=== PATIENT | female | born 1945 | race Two or more races ===

== ENCOUNTER 2020-01-01 11:51 | Emergency (ER) | payer OTHER ==
[~2020-01-01] VITALS: Ht 160 cm; Wt 81.6 kg
[~2020-01-01 11:51] MED LIST: LISINOPRIL10 MG; TOPROL XL25 M1
[2020-01-01] MEDS ORDERED: ASPIR 8181 MG PO (12:15)
== END 2020-01-01 15:36 | disposition home or self-care (01) ==
LOC: ER 11:51
DX: B34.9 Viral infection, unspecified (principal)

== ENCOUNTER 2022-01-21 10:06 | Emergency (ER) | payer OTHER ==
[~2022-01-21] VITALS: Ht 160 cm; Wt 83.9 kg
[~2022-01-21 10:06] MED LIST changes: +ASPIR 8181 MG PO
[2022-01-21] MEDS ORDERED: MEDROLPACK PO (13:35)
== END 2022-01-21 14:32 | disposition home or self-care (01) ==
LOC: ER 10:06
DX: R30.0 Dysuria (principal); M54.9 Dorsalgia, unspecified

== ENCOUNTER 2022-07-30 09:44 | Emergency (ER) | payer OTHER ==
[~2022-07-30] VITALS: Ht 160 cm; Wt 81.2 kg
[~2022-07-30 09:44] MED LIST changes: +MEDROLPACK PO
[2022-07-30] MEDS ORDERED: CIPRO500 MG PO (09:57)
== END 2022-07-30 14:39 | disposition home or self-care (01) ==
LOC: ER 09:44
DX: R10.9 Unspecified abdominal pain (principal); R30.0 Dysuria; N20.0 Calculus of kidney

== ENCOUNTER → 2022-09-09 | Emergency (ER) | payer OTHER ==
[~2022-09-09] VITALS: Ht 160 cm; Wt 81.6 kg
[~2022-09-09] MED LIST changes: +CIPRO500 MG PO; +PEPCID AC20 MG PO; +ZOFRAN8 MG PO
== END | disposition home or self-care (01) ==
LOC: ER 14:18
DX: R11.10 Vomiting, unspecified (principal); I10 Essential (primary) hypertension; Z20.822 Contact with and (suspected) exposure to COVID-19

== ENCOUNTER 2025-09-05 14:04 | Inpatient (IN) | payer OTHER ==
[~2025-09-05] VITALS: Ht 157.5 cm; Wt 65.3 kg
[2025-09-05] MEDS ORDERED: METFORMIN HCL500 M3 PO (14:39)
[2025-09-05] MEDS ORDERED: ZESTRIL20 MG PO (14:39)
[2025-09-05] MEDS ORDERED: TOPROL XL100 M1 PO (14:39)
[2025-09-05] MEDS ORDERED: INTEGRA PLUS C1 EACH PO (14:39)
--- NOTE | 2025-09-05 14:40 | NUR ---
PTE LLEGA POR REFERIDO DE ADRIANNE RODRIGUEZ . SE LE VANI S/V Y SE ACOMODA EN NATALIYA.
[2025-09-05] MEDS ORDERED: 0.9 % SODIUM CHLORIDE 1,000 ML IV ONE (14:45)
[2025-09-05] MEDS ORDERED: ONDANSETRON HCL 2 MG/ML VIAL IV PRN (15:15)
[2025-09-05] MEDS ORDERED: RINGERS SOLUTION,LACTATED 1,000 ML IV SCH (15:15)
[2025-09-05] MEDS ORDERED: OxyCODONE HCL 5 MG TABLET (ROXICODONE) PO PRN (15:15)
--- NOTE | 2025-09-05 15:47 | NUR ---
PACIENTE EVALUADA POR QUIEN ORDENA TRATAMIENTO MEDICO, SE LE ORIENTA A PACIENTE SOBRE EL MISMO Y REFIERE ENTENDER, SE LE COLECTAN MUESTRAS DE LABORTORIO Y SE CANALIZA BAJO MEDIDAS ASETPICAS. SE LE COLOCAN IV FLUIDS OSEAS ORDEN Y SE LE HACE ENTREGA A PACIENTE ENVASE PARA COLECTA DE U/A.
[2025-09-05 15:50] LABS: BASO % 1.0 % (0.1-1.2); EOS # 0.25 (0.04-0.54); EOS % 2.7 % (0.7-7.0); LYMPH # 1.73 (1.18-3.74); LYMPH % 18.6 % (19.3-53.1); MEAN PLATELET VOLUME 8.40 fl (9.4-12.4); MONO # 0.81 (0.24-0.82); MONO % 8.7 % (4.7-12.5); NEUT # 6.41 (1.56-6.13); NEUT % 68.7 % (34.0-71.1); RED CELL DISTRIBUTION WIDTH 17.0 % (11.6-14.4)
[2025-09-05] MEDS ORDERED: HYOSCYAMINE SULFATE 0.125 MG TAB.SUBL ONE (15:58)
[2025-09-05] MEDS ORDERED: DIATRIZOATE MEGLUMINE, SODIUM 30 ML BOTTLE ONE (16:15)
[2025-09-05 16:18] LABS: INR 1.01
[2025-09-05 16:20] LABS: ALT/SGPT 19 U/L (12-78); AST/SGOT 30 U/L (15-37); BILIRUBIN TOTAL 0.30 mg/dL (0.3-1.2); BILIRUBIN,CONJUGATED < 0.10 mg/dL (0.0-0.2); BUN CREA RATIO 23 (7.0-25.0); CREATININE SERUM 0.82 mg/dL (0.55-1.02); GFR 67.07; GLOBULINA 5.4 G/DL (2.4-3.5); GLUCOSE FASTING 123 mg/dL (65-100); OSMOLALITY SERUM 274 MOSM/KG (275-295)
[2025-09-05 16:28] VITALS: BP 145/74; O2SAT 100
[2025-09-05] MEDS ORDERED: HYOSCYAMINE SULFATE 0.125 MG TAB.SUBL SL SCH (17:00)
[2025-09-05 18:33] LABS: URINE APPEARANCE Clear; URINE BILIRRUBIN Negative (NEGATIVE); URINE BLOOD Small; URINE COLOR Yellow; URINE GLUCOSE Negative (NEGATIVE); URINE KETONE Negative (NEGATIVE); URINE LEUKOCYTE Trace; URINE NITRATE Positive; URINE UROBILINOGEN 0.2 E.U./dl
[2025-09-05 18:36] LABS: URINE CAST 1.61 uL (0.0-1.40); URINE EPITHELIAL CELLS 9.0 uL (0.0-38.8); URINE RBC 17.3 uL (0.0-20.8); URINE WBC 123.3 uL (0.0-23.2)
[2025-09-05 18:42] VITALS: BP 157/76; O2SAT 99
[2025-09-05 18:43] LABS: URINE BACTERIA > 9821.5 uL (0.0-1933); URINE PROTEIN 100 (NEGATIVE)
[2025-09-05] MEDS ORDERED: CEFTRIAXONE SODIUM 1,000 MG VIAL IV STA (19:30)
[2025-09-05] MEDS ORDERED: INSULIN LISPRO 1,000 UNIT/10 ML UNITS SUBCUTANEO PRN (19:30)
[2025-09-05] MEDS ORDERED: ENALAPRILAT DIHYDRATE 1.25 MG/ML VIAL IV PRN (19:30)
[2025-09-05] MEDS ORDERED: DEXTROSE 50 % IN WATER 0.5 G/ML DISP.SYRIN IV PRN (19:30)
[2025-09-05] MEDS ORDERED: AMINO ACIDS/PROTEIN HYDROLYS 30 ML BLIST.PACK PO NR (19:40)
[2025-09-05] MEDS ORDERED: FAMOTIDINE/PF 20 MG/2 ML VIAL IV SCH (21:00)
[2025-09-06 00:52] VITALS: BP 125/73; O2SAT 99
[2025-09-06 01:13] LABS: CREATININE URINE RANDOM 32.6 MG/DL (30-125)
[2025-09-06 07:11] LABS: BASO % 0.9 % (0.1-1.2); EOS # 0.34 (0.04-0.54); EOS % 3.8 % (0.7-7.0); LYMPH # 1.56 (1.18-3.74); LYMPH % 17.4 % (19.3-53.1); MEAN PLATELET VOLUME 9.10 fl (9.4-12.4); MONO # 0.76 (0.24-0.82); MONO % 8.5 % (4.7-12.5); NEUT # 6.20 (1.56-6.13); NEUT % 69.1 % (34.0-71.1); RED CELL DISTRIBUTION WIDTH 17.1 % (11.6-14.4)
[2025-09-06 07:50] LABS: COL EPI 79 SECONDS (82-175)
[2025-09-06 08:00] VITALS: BP 136/73; O2SAT 96
[2025-09-06 08:05] LABS: BUN CREA RATIO 38.0 (7.0-25.0); CREATININE SERUM 0.37 mg/dL (0.55-1.02); GFR 168.04; GLUCOSE FASTING 98.0 mg/dL (65-100); OSMOLALITY SERUM 276.0 MOSM/KG (275-295); TSH 0.784 uIU/mL (0.358-3.74)
[2025-09-06] MEDS ORDERED: Cyanocobalamin/Mecobalamin 1 TAB.SL SL SCH (09:00)
[2025-09-06] MEDS ORDERED: LACTOBACILLUS ACIDOPHILUS 1 CAP CAP PO SCH (09:00)
[2025-09-06] MEDS ORDERED: SOD FERRIC GLUC COMPLX/SUCROSE 62.5 MG in 0.9 % SODIUM CHLORIDE 50 ML IV SCH (09:00)
[2025-09-06] MEDS ORDERED: LISINOPRIL 20 MG TABLET PO SCH (09:00)
[2025-09-06] MEDS ORDERED: AMINO ACIDS/PROTEIN HYDROLYS 30 ML BLIST.PACK PO SCH (09:00)
[2025-09-06 16:32] VITALS: BP 153/68
[2025-09-06] MEDS ORDERED: CEFTRIAXONE SODIUM 1,000 MG VIAL IV SCH (17:00)
[2025-09-06] MEDS ORDERED: ENOXAPARIN SODIUM 40 MG/0.4 ML SYRINGE SUBCUTANEO SCH (17:00)
[2025-09-07 01:13] VITALS: BP 120/54; O2SAT 95
[2025-09-07] MEDS ORDERED: POLYETHYLENE GLYCOL 3350 17 GM BLIST.PACK PO SCH (09:00)
[2025-09-07 13:13] LABS: FE 22.0 ug/dl (50-170)
[2025-09-07 13:32] LABS: FOLIC ACID > 20.00 ng/ml (4.78-20)
[2025-09-07] MEDS ORDERED: CEFTRIAXONE SODIUM 1,000 MG VIAL IV SCH (17:00)
[2025-09-07 17:19] VITALS: BP 182/73; O2SAT 98
[2025-09-07] MEDS ORDERED: AMLODIPINE BESYLATE 2.5 MG TABLET PO STA (19:04)
[2025-09-07 21:12] VITALS: BP 142/59; BP 162/73
[2025-09-08 00:30] VITALS: BP 134/77; O2SAT 98
[2025-09-08 08:28] VITALS: BP 147/69; O2SAT 96
[2025-09-08 16:50] VITALS: BP 180/67; O2SAT 98
[2025-09-08 18:45] VITALS: BP 166/73; O2SAT 96
[2025-09-08 19:48] VITALS: BP 176/80; O2SAT 97
[2025-09-08] MEDS ORDERED: AMLODIPINE BESYLATE 2.5 MG TABLET PO STA (19:56)
[2025-09-08 22:00] VITALS: BP 156/80; O2SAT 98
[2025-09-09 01:22] VITALS: BP 152/70; O2SAT 97
[2025-09-09 07:52] LABS: BASO % 1.0 % (0.1-1.2); EOS # 0.37 (0.04-0.54); EOS % 4.8 % (0.7-7.0); LYMPH # 1.50 (1.18-3.74); LYMPH % 19.3 % (19.3-53.1); MEAN PLATELET VOLUME 9.30 fl (9.4-12.4); MONO # 0.81 (0.24-0.82); MONO % 10.4 % (4.7-12.5); NEUT # 4.98 (1.56-6.13); NEUT % 64.1 % (34.0-71.1); RED CELL DISTRIBUTION WIDTH 16.7 % (11.6-14.4)
[2025-09-09 07:59] LABS: BUN CREA RATIO 23.0 (7.0-25.0); CREATININE SERUM 0.48 mg/dL (0.55-1.02); GFR 124.44; GLUCOSE FASTING 116.0 mg/dL (65-100); OSMOLALITY SERUM 280.0 MOSM/KG (275-295)
[2025-09-09 08:00] VITALS: BP 156/85; O2SAT 97
[2025-09-09] MEDS ORDERED: POLYETHYLENE GLYCOL 3350 17 GM BLIST.PACK PO SCH (09:00)
[2025-09-09] MEDS ORDERED: MAGNESIUM CITRATE 296 ML BOTTLE PO SCH (15:00)
[2025-09-09 16:00] VITALS: BP 135/72; O2SAT 98
[2025-09-10 01:35] VITALS: BP 173/91; O2SAT 98
[2025-09-10 09:30] VITALS: BP 145/77; O2SAT 98
[2025-09-10] MEDS ORDERED: MEROPENEM 500 MG/VIAL VIAL IV SCH (12:00)
[2025-09-10] MEDS ORDERED: CEFTRIAXONE SODIUM 2,000 MG in 0.9 % SODIUM CHLORIDE 50 ML IV ONE (13:00)
[2025-09-10] MEDS ORDERED: HEPARIN SODIUM,PORCINE/PF 100 UNIT/ML SYRINGE IV ONE (13:33)
[2025-09-10] MEDS ORDERED: SUGAMMADEX SODIUM 200 MG/2 ML VIAL IV ONE (15:16)
[2025-09-10] MEDS ORDERED: OxyCODONE HCL 5 MG TABLET (ROXICODONE) PO PRN (16:00)
[2025-09-10] MEDS ORDERED: MORPHINE SULFATE 4 MG/ML CARTRIDGE IV PRN (16:00)
[2025-09-10] MEDS ORDERED: ONDANSETRON HCL 2 MG/ML VIAL IV PRN (16:00)
[2025-09-10] MEDS ORDERED: GABAPENTIN 300 MG CAPSULE PO SCH (17:00)
[2025-09-10] MEDS ORDERED: HYOSCYAMINE SULFATE 0.125 MG TAB.SUBL SL SCH (17:00)
[2025-09-10] MEDS ORDERED: CEFTRIAXONE SODIUM 2,000 MG VIAL IV SCH (17:00)
[2025-09-10 17:21] LABS: BASO % 1.0 % (0.1-1.2); EOS # 0.22 (0.04-0.54); EOS % 2.7 % (0.7-7.0); LYMPH # 1.53 (1.18-3.74); LYMPH % 19.0 % (19.3-53.1); MEAN PLATELET VOLUME 8.40 fl (9.4-12.4); MONO # 0.90 (0.24-0.82); MONO % 11.2 % (4.7-12.5); NEUT # 5.30 (1.56-6.13); NEUT % 65.7 % (34.0-71.1); RED CELL DISTRIBUTION WIDTH 17.3 % (11.6-14.4)
[2025-09-10] MEDS ORDERED: ACETAMINOPHEN 500 MG GEL..CAP PO SCH (20:00)
[2025-09-10 21:26] VITALS: BP 150/66; O2SAT 93
[2025-09-11 00:10] VITALS: BP 138/72; O2SAT 95
[2025-09-11 06:43] LABS: BASO % 0.8 % (0.1-1.2); EOS # 0.15 (0.04-0.54); EOS % 1.9 % (0.7-7.0); LYMPH # 1.02 (1.18-3.74); LYMPH % 12.8 % (19.3-53.1); MEAN PLATELET VOLUME 8.80 fl (9.4-12.4); MONO # 0.66 (0.24-0.82); MONO % 8.3 % (4.7-12.5); NEUT # 6.04 (1.56-6.13); NEUT % 75.8 % (34.0-71.1); RED CELL DISTRIBUTION WIDTH 17.6 % (11.6-14.4)
[2025-09-11 07:02] LABS: BUN CREA RATIO 23.0 (7.0-25.0); CREATININE SERUM 0.48 mg/dL (0.55-1.02); GFR 124.44; GLUCOSE FASTING 116.0 mg/dL (65-100); OSMOLALITY SERUM 283.0 MOSM/KG (275-295)
[2025-09-11 08:00] VITALS: BP 134/62; O2SAT 95
[2025-09-11] MEDS ORDERED: LACTOBACILLUS ACIDOPHILUS 1 CAP CAP PO SCH (09:00)
[2025-09-11] MEDS ORDERED: TAMSULOSIN HCL 0.4 MG CAP PO STA (14:37)
[2025-09-11 15:45] VITALS: BP 121/70
[2025-09-11] MEDS ORDERED: ENOXAPARIN SODIUM 40 MG/0.4 ML SYRINGE SUBCUTANEO SCH (17:00)
[2025-09-12 01:49] VITALS: BP 137/84; O2SAT 99
[2025-09-12 06:57] LABS: BASO % 0.6 % (0.1-1.2); EOS # 0.30 (0.04-0.54); EOS % 3.7 % (0.7-7.0); LYMPH # 1.38 (1.18-3.74); LYMPH % 17.1 % (19.3-53.1); MEAN PLATELET VOLUME 8.60 fl (9.4-12.4); MONO # 0.61 (0.24-0.82); MONO % 7.6 % (4.7-12.5); NEUT # 5.70 (1.56-6.13); NEUT % 70.6 % (34.0-71.1); RED CELL DISTRIBUTION WIDTH 17.6 % (11.6-14.4)
[2025-09-12 07:18] LABS: BUN CREA RATIO 27.0 (7.0-25.0); CREATININE SERUM 0.51 mg/dL (0.55-1.02); GFR 116.03; GLUCOSE FASTING 134.0 mg/dL (65-100); OSMOLALITY SERUM 278.0 MOSM/KG (275-295)
[2025-09-12 08:00] VITALS: BP 156/74; O2SAT 97
[2025-09-12] MEDS ORDERED: ENOXAPARIN SODIUM 40 MG/0.4 ML SYRINGE SUBCUTANEO SCH (09:00)
[2025-09-12 16:00] VITALS: BP 165/79; O2SAT 98
[2025-09-12] MEDS ORDERED: TAMSULOSIN HCL 0.4 MG CAP PO SCH (21:00)
[2025-09-13 01:33] VITALS: BP 143/81; O2SAT 95
[2025-09-13 09:32] VITALS: BP 153/73; O2SAT 96
[2025-09-13 16:27] VITALS: BP 132/84; O2SAT 96
[2025-09-13] MEDS ORDERED: AA 4.25%/CALCIUM/LYTES/DEX 10% 1,000 ML CENTRAL SCH (17:00)
[2025-09-13] MEDS ORDERED: MORPHINE SULFATE 4 MG/ML CARTRIDGE IV PRN (18:00)
[2025-09-13 19:06] LABS: BUN CREA RATIO 33.0 (7.0-25.0); CHOL HDL RATIO 2.5 (0-5.0); CREATININE SERUM 0.46 mg/dL (0.55-1.02); GFR 130.7; GLUCOSE FASTING 118.0 mg/dL (65-100); HDL 68.0 mg/dl (40-60); LDL 67.0 mg/dl (0-130); OSMOLALITY SERUM 278.0 MOSM/KG (275-295); VLDL 34.0 (0-39)
[2025-09-13] MEDS ORDERED: FAT EMULSIONS 250 ML IV SCH (21:00)
[2025-09-14 01:07] VITALS: BP 142/77; O2SAT 97
[2025-09-14 06:50] LABS: BASO % 0.6 % (0.1-1.2); EOS # 0.25 (0.04-0.54); EOS % 2.9 % (0.7-7.0); LYMPH # 1.32 (1.18-3.74); LYMPH % 15.3 % (19.3-53.1); MEAN PLATELET VOLUME 8.70 fl (9.4-12.4); MONO # 0.56 (0.24-0.82); MONO % 6.5 % (4.7-12.5); NEUT # 6.44 (1.56-6.13); NEUT % 74.4 % (34.0-71.1); RED CELL DISTRIBUTION WIDTH 17.2 % (11.6-14.4)
[2025-09-14 07:20] LABS: BUN CREA RATIO 45.0 (7.0-25.0); CREATININE SERUM 0.31 mg/dL (0.55-1.02); GFR 206.1; GLUCOSE FASTING 143.0 mg/dL (65-100); OSMOLALITY SERUM 279.0 MOSM/KG (275-295)
[2025-09-14 08:00] VITALS: BP 147/71; O2SAT 97
[2025-09-14 16:00] VITALS: BP 171/74; O2SAT 99
[2025-09-15 01:04] VITALS: BP 174/76; O2SAT 98
[2025-09-15 08:47] VITALS: BP 158/68; O2SAT 97
[2025-09-15 14:59] LABS: URINE APPEARANCE Clear; URINE BILIRRUBIN Negative (NEGATIVE); URINE BLOOD Trace; URINE COLOR Yellow; URINE GLUCOSE Negative (NEGATIVE); URINE KETONE Negative (NEGATIVE); URINE LEUKOCYTE Negative; URINE NITRATE Negative; URINE UROBILINOGEN 0.2 E.U./dl
[2025-09-15 15:03] LABS: URINE BACTERIA 21.5 uL (0.0-1933); URINE EPITHELIAL CELLS 6.2 uL (0.0-38.8); URINE RBC 29.1 uL (0.0-20.8); URINE WBC 4.6 uL (0.0-23.2)
[2025-09-15 15:04] LABS: URINE CAST 0.00 uL (0.0-1.40); URINE PROTEIN 100 (NEGATIVE)
[2025-09-15 16:00] VITALS: BP 164/79; O2SAT 96
[2025-09-16] VITALS: BP 148/67; O2SAT 97
[2025-09-16 08:10] VITALS: BP 150/70; O2SAT 98
[2025-09-16 15:00] VITALS: BP 126/72; O2SAT 99
[2025-09-16] MEDS ORDERED: LORATADINE 10 MG TABLET PO SCH (21:00)
[2025-09-17] VITALS: BP 117/75; BP 171/96; O2SAT 98
[2025-09-17 06:26] LABS: BASO % 0.9 % (0.1-1.2); EOS # 0.29 (0.04-0.54); EOS % 4.2 % (0.7-7.0); LYMPH # 1.56 (1.18-3.74); LYMPH % 22.4 % (19.3-53.1); MEAN PLATELET VOLUME 9.30 fl (9.4-12.4); MONO # 0.53 (0.24-0.82); MONO % 7.6 % (4.7-12.5); NEUT # 4.49 (1.56-6.13); NEUT % 64.6 % (34.0-71.1); RED CELL DISTRIBUTION WIDTH 17.2 % (11.6-14.4)
[2025-09-17 06:56] LABS: ALT/SGPT 16.0 U/L (12-78); AST/SGOT 26.0 U/L (15-37); BILIRUBIN TOTAL 0.32 mg/dL (0.3-1.2); BUN CREA RATIO 44.0 (7.0-25.0); CREATININE SERUM 0.32 mg/dL (0.55-1.02); GFR 198.68; GLOBULINA 4.1 G/DL (2.4-3.5); GLUCOSE FASTING 105.0 mg/dL (65-100); OSMOLALITY SERUM 280.0 MOSM/KG (275-295)
[2025-09-17 08:19] VITALS: BP 154/79; O2SAT 96
[2025-09-17] MEDS ORDERED: METOPROLOL SUCCINATE 100 MG TAB.SR.24H PO SCH (09:00)
[2025-09-17] MEDS ORDERED: LORATADINE10 MG PO (14:56)
[2025-09-17] MEDS ORDERED: ZESTRIL20 MG PO (14:57)
[2025-09-17] MEDS ORDERED: INTEGRA PLUS C1 EACH PO (14:57)
[2025-09-17] MEDS ORDERED: TOPROL XL100 M1 PO (14:58)
[2025-09-17] MEDS ORDERED: PROTEINEX-18 LI30 ML PO (14:58)
[2025-09-17] MEDS ORDERED: INTESTINEX680 M1 PO (14:58)
[2025-09-17] MEDS ORDERED: ABANEU-SL TABL1 EACH SL (14:59)
== END 2025-09-17 17:20 | disposition home or self-care (01) | DRG 330 ==
LOC: ER 14:04 → SURG 17:11 → SURH 09-07 16:01
PROVIDERS: Emergency Medicine; Internal Medicine; Internal Medicine Infectious Disease; Surgery; ADMIT Internal Medicine Geriatric Medicine; ATTEND Internal Medicine Geriatric Medicine
PROC: 02HV33Z Insertion of Infusion Device into Superior Vena Cava, Percutaneous Approach (ICD-10-PCS; 2025-09-06)
PROC: 30233N1 Transfusion of Nonautologous Red Blood Cells into Peripheral Vein, Percutaneous Approach (ICD-10-PCS; 2025-09-06)
PROC: 05H Upper Veins, Insertion (ICD-10-PCS; 2025-09-10)
PROC: 0D1M4Z4 Bypass Descending Colon to Cutaneous, Percutaneous Endoscopic Approach (ICD-10-PCS; principal; 2025-09-10 15:15)
DX: K56.699 Other intestinal obstruction unspecified as to partial versus complete obstruction (principal); C18.7 Malignant neoplasm of sigmoid colon; C79.82 Secondary malignant neoplasm of genital organs; N39.0 Urinary tract infection, site not specified; Z43.3 Encounter for attention to colostomy; D50.0 Iron deficiency anemia secondary to blood loss (chronic); E11.9 Type 2 diabetes mellitus without complications; Z79.4 Long term (current) use of insulin; K59.09 Other constipation; B96.29 Other Escherichia coli [E. coli] as the cause of diseases classified elsewhere; I11.9 Hypertensive heart disease without heart failure

== ENCOUNTER 2025-09-20 21:37 | Emergency (ER) | payer OTHER ==
[~2025-09-20] VITALS: Ht 160 cm; Wt 66.2 kg
[~2025-09-20 21:37] MED LIST changes: +ABANEU-SL TABL1 EACH SL; +INTEGRA PLUS C1 EACH PO; +INTESTINEX680 M1 PO; +LORATADINE10 MG PO; +METFORMIN HCL500 M3 PO; +PROTEINEX-18 LI30 ML PO; +TOPROL XL100 M1 PO; +ZESTRIL20 MG PO
[2025-09-20] MEDS ORDERED: HYOSCYAMINE SULFATE 0.125 MG TAB.SUBL SL ONE (23:15)
[2025-09-20] MEDS ORDERED: ONDANSETRON HCL 4 MG in 0.9 % SODIUM CHLORIDE 50 ML IV ONE (23:15)
[2025-09-20] MEDS ORDERED: PIPERACILLIN/TAZOBACTAM SODIUM 3.375 GM in DEXTROSE 5 % IN WATER 100 ML IV ONE (23:15)
[2025-09-20] MEDS ORDERED: FAMOtidine 10 MG/ML (4ML VIAL) IV PUSH ONE (23:15)
[2025-09-21 02:00] LABS: ERYTHROCYTE SEDIMENTATION RATE 112 mm/hr (0-30)
[2025-09-21 02:01] LABS: BASO % 0.8 % (0.1-1.2); EOS # 0.12 (0.04-0.54); EOS % 1.4 % (0.7-7.0); LYMPH # 1.29 (1.18-3.74); LYMPH % 14.9 % (19.3-53.1); MEAN PLATELET VOLUME 8.80 fl (9.4-12.4); MONO # 0.58 (0.24-0.82); MONO % 6.7 % (4.7-12.5); NEUT # 6.59 (1.56-6.13); NEUT % 76.0 % (34.0-71.1); RED CELL DISTRIBUTION WIDTH 17.0 % (11.6-14.4)
[2025-09-21 02:04] LABS: INR 1.02
[2025-09-21 02:14] LABS: ALT/SGPT 22.0 U/L (12-78); AST/SGOT 29.0 U/L (15-37); BILIRUBIN TOTAL 0.36 mg/dL (0.3-1.2); BUN CREA RATIO 25.0 (7.0-25.0); CREATININE SERUM 0.51 mg/dL (0.55-1.02); GFR 116.03; GLOBULINA 4.7 G/DL (2.4-3.5); GLUCOSE FASTING 124.0 mg/dL (65-100); OSMOLALITY SERUM 281.0 MOSM/KG (275-295)
[2025-09-21 08:11] VITALS: BP 116/67; O2SAT 100
[2025-09-21 08:25] LABS: URINE APPEARANCE Cloudy; URINE BILIRRUBIN Negative (NEGATIVE); URINE BLOOD Moderate; URINE COLOR Yellow; URINE GLUCOSE Negative (NEGATIVE); URINE KETONE Trace (NEGATIVE); URINE LEUKOCYTE Small; URINE NITRATE Negative; URINE UROBILINOGEN 0.2 E.U./dl
[2025-09-21 08:27] LABS: URINE BACTERIA 672.0 uL (0.0-1933); URINE CAST 2.93 uL (0.0-1.40); URINE EPITHELIAL CELLS 85.8 uL (0.0-38.8); URINE RBC 62.7 uL (0.0-20.8); URINE WBC 120.0 uL (0.0-23.2)
[2025-09-21 08:39] LABS: URINE PROTEIN 300 (NEGATIVE)
== END 2025-09-21 11:18 | disposition home or self-care (01) ==
LOC: ER 21:38
PROVIDERS: General Practice
DX: K56.699 Other intestinal obstruction unspecified as to partial versus complete obstruction (principal); K62.5 Hemorrhage of anus and rectum; R10.9 Unspecified abdominal pain; N39.0 Urinary tract infection, site not specified; I10 Essential (primary) hypertension; Z93.3 Colostomy status; Z85.038 Personal history of other malignant neoplasm of large intestine; E11.9 Type 2 diabetes mellitus without complications; I11.9 Hypertensive heart disease without heart failure